=== PATIENT | male | born 1975 | race Caucasian/White ===

== ENCOUNTER → 2019-04-23 | Outpatient (CLI) | payer BC ==
[~2019-04-23] MED LIST: LEVOXYL0.175 MG PO; NORCO 325 MG-51 TAB PO; ZYRTEC 10MG10 MG PO
== END ==
LOC: COL.RAD 08:05
DX: E07.9 Disorder of thyroid, unspecified (principal)

== ENCOUNTER 2022-09-15 06:42 | Day surgery (SDC) | payer BC ==
[~2022-09-15] VITALS: Ht 193 cm; Wt 118.5 kg
[2022-09-15] MEDS ORDERED: LIPITOR 10MG10 MG PO (07:01)
[2022-09-15 07:24] VITALS: BP 135/84; PULSE 65; TEMP 97.6
[2022-09-15 08:05] VITALS: BP 133/94; PULSE 63
--- NOTE | 2022-09-15 08:05 | NUR ---
PATIENT RETURNS TO BAY [facility] PER CART AND TRANSFERS FROM CART TO RECLINER. GAIT STEADY AND SPOUSE IN ROOM. IV FLUIDS INFUSING. CALL LIGHT IN REACH. DENIES PAIN OR NAUSEA. GIVEN MUFFIN AND DIET COKE.
[2022-09-15 08:20] VITALS: BP 105/95; PULSE 65
--- NOTE | 2022-09-15 08:20 | NUR ---
DR. DILL IN THE ROOM. ALL QUESTIONS ANSWERED. TOLERATES SNACK.
[2022-09-15 08:35] VITALS: BP 125/91; PULSE 65
--- NOTE | 2022-09-15 08:35 | NUR ---
IV DISCONTINUED. GIVEN DISMISSAL INSTRUCTIONS. DRESSES SELF.
--- NOTE | 2022-09-15 08:42 | NUR ---
PATIENT DISCHARGED TO HOME DRIVEN BY SPOUSE AND TAKEN TO FRONT DOOR PER WHEELCHAIR AND ASSISTED INTO CAR WITH INSTRUCTIONS IN HAND.
[2022-09-15 19:14] VITALS: BP 118/76; PULSE 60
== END 2022-09-15 08:42 | disposition home or self-care (01) ==
LOC: SDCO 06:42
DX: Z12.11 Encounter for screening for malignant neoplasm of colon (principal); D12.8 Benign neoplasm of rectum
CPT/HCPCS: J2704; J7120